=== PATIENT | female | born 1985 | race Caucasian/White ===

== ENCOUNTER 2018-09-04 15:51 | Emergency (ER) | payer MEDICAID ==
[2018-09-04 15:51] VITALS: BMI 32.7
[2018-09-04] MEDS ORDERED: Lactated Ringer's 1,000 ML IV STA (17:05)
[2018-09-04 17:38] LABS: BASO # 0.1 K/uL (0.0-0.2); BASO % 0.7 % (0.0-2.0); EOS # 0.1 K/uL (0.0-0.7); EOS % 1.6 % (0.0-4.0); HEMOGLOBIN 11.1 g/dL (12.0-16.0); LYMPH # 2.4 K/uL (1.0-4.3); LYMPH % 29.1 % (20.0-40.0); MEAN CELL VOLUME 81.7 fl (81.0-99.0); MEAN CORPUSCULAR HEMOGLOBIN 26.4 pg (27.0-31.0); MEAN CORPUSCULAR HGB CONC 32.3 g/dL (33.0-37.0); MONO # 0.7 K/uL (0.0-0.8); MONO % 8.3 % (0.0-10.0); NEUT # 5.1 K/uL (1.8-7.0); NEUT % 60.3 % (50.0-75.0); RBC 4.21 Mil/uL (3.80-5.20); RED CELL DISTRIBUTION WIDTH 15.6 % (11.5-14.5); WHITE BLOOD COUNT 8.4 K/uL (4.8-10.8)
[2018-09-04 17:49] LABS: PROTHROMBIN TIME 11.2 Seconds (9.8-13.1)
--- NOTE | 2018-09-04 18:52 | US ---
Date of service: 09/04/2018 PROCEDURE: OB Pelvic Ultrasound HISTORY: vag bleed early poreg LMP: 06/04/2018 COMPARISON: None available. FINDINGS: UTERUS: Single irregular intrauterine gestational sac. No evidence of pole or yolk sac. Gestational sac diameter measures 3.19 cm corresponding to 8 weeks and 1 day of gestational age. Samina-gestational hemorrhage: None. Uterus measures 9.4 x 5.3 x 6.2 cm. Normal in size and appearance. CERVIX: Long and closed. No cervical abnormality seen. RIGHT OVARY: Measures 4.9 x 2.4 x 4.6 cm. No mass lesion. Normal flow. LEFT OVARY: Measures 2.9 x 2.2 x 2.1 cm. No solid mass. Normal flow. FREE FLUID: None. OTHER FINDINGS: None. IMPRESSION: Findings are most compatible with anembryonic /blighted ovum.
--- NOTE | 2018-09-04 18:55 | ED PDOC ---
HPI: Female Pain Time Seen by Provider: 09/04/18 17:03 Chief Complaint (Nursing): Female Genitourinary Chief Complaint (Provider): Female Genitourinary History Per: Patient History/Exam Limitations: no limitations Onset/Duration Of Symptoms: Days (x 7 ) Current Symptoms Are (Timing): Still Present Additional Complaint(s): 33 year old female with no significant medical history presents to the ED for evaluation of brown vaginal spotting during for the last week. Patient reports that she only has to use pantiliner. Patient is 13 weeks and has not yet begun care. She has an appointment with women's health clinic next week. Denies abdominal cramping, bright red blood, clots, dysuria, urinary frequency and vomiting. PMD: none Abnormal Vaginal Bleeding: Yes : 2 Para: 1 Past Medical History Reviewed: Historical Data, Nursing Documentation, Vital Signs Vital Signs: Last Vital Signs Temp 98.4 F 09/04/18 16:33 Pulse 72 09/04/18 16:33 Resp 16 09/04/18 16:33 BP 140/86 09/04/18 16:33 Pulse Ox 100 09/04/18 16:33 - Medical History PMH: No Chronic Diseases - Surgical History Other surgeries: gastric bypass and abdominoplasty - Family History Family History: States: Diabetes - Social History Current smoker - smoking cessation education provided: No Alcohol: None - Home Medications Home Medications: Ambulatory Orders Medication Instructions Recorded Vits96/Iron Fum/Folic 1 tab PO DAILY 12/29/14 [] Ibuprofen [Motrin Tab] 600 mg PO Q8 PRN #60 tab 09/04/18 - Allergies Allergies/Adverse Reactions: Allergies Allergy/AdvReac Type Severity Reaction Status Date / Time No Known Allergies Allergy Verified 09/04/18 16:33 Review of Systems ROS Statement: Except As Marked, All Systems Reviewed And Found Negative Gastrointestinal: Negative for: Abdominal Pain Genitourinary Female: Positive for: Vaginal Bleeding (brown spotting). Negative for: Dysuria, Frequency, Incontinence, Other (bright red blood or clots) Physical Exam - Reviewed Nursing Documentation Reviewed: Yes Vital Signs Reviewed: Yes - Physical Exam Appears: Positive for: No Acute Distress Head Exam: Positive for: ATRAUMATIC, NORMAL INSPECTION, NORMOCEPHALIC Skin: Positive for: Normal Color, Warm, Dry. Negative for: Rash Eye Exam: Positive for: EOMI, Normal appearance, PERRL Cardiovascular/Chest: Positive for: Regular Rate, Rhythm. Negative for: Murmur Respiratory: Positive for: Normal Breath Sounds. Negative for: Wheezing, Respiratory Distress Gastrointestinal/Abdominal: Positive for: Normal Exam, Soft. Negative for: Tenderness, Mass, Guarding, Rebound Neurological/Psych: Positive for: Awake, Alert, Normal Tone. Negative for: Motor/Sensory Deficits - Laboratory Results Result Diagrams: 09/04/18 17:31 Lab Results: PT 11.2 Seconds (9.8-13.1) 09/04/18 17: INR 1.0 09/04/18 17: APTT 37.0 Seconds (25.6-37.1) 09/04/18 17: Beta HCG, Quant 01101.00 mIU/mL 09/04/18 17:31 - ECG O2 Sat by Pulse Oximetry: 100 (RA) Pulse Ox Interpretation: Normal Medical Decision Making Medical Decision Makin:04 Impression: vaginal bleeding in Differential diagnoses include but are not limited to: UTI, vaginitis, threatened miscarriage, demise Initial Plan: --Blood type and screen --CBC --CMP --Beta-HCG --Chlamydia/ GC RNA --Lactated Ringer's IV 1,000 mls --PTT --PT --Urine preg --Urine dip --OB US 18:48 OB US LMP: 06/04/2018 COMPARISON: None available. FINDINGS: UTERUS: Single irregular intrauterine gestational sac. No evidence of pole or yolk sac. Gestational sac diameter measures 3.19 cm corresponding to 8 weeks and 1 day of gestational age. Samina-gestational hemorrhage: None. Uterus measures 9.4 x 5.3 x 6.2 cm. Normal in size and appearance. CERVIX: Long and closed. No cervical abnormality seen. RIGHT OVARY: Measures 4.9 x 2.4 x 4.6 cm. No mass lesion. Normal flow. LEFT OVARY: Measures 2.9 x 2.2 x 2.1 cm. No solid mass. Normal flow. FREE FLUID: None. OTHER FINDINGS: None. IMPRESSION: Findings are most compatible with anembryonic /blighted ovum. DW pt findings. Pt continues to have benign abdominal exam. Reviewed symptoms to anticipate with miscarriage. Advised rest, fluids, and followup with Gynecologis t as scheduled. Reviewed return parameters including severe pain, bleeding more than one pad an hour, fainting or near fainting. Scribe Attestation: Documented by Carolann Hanson, acting as a scribe for Deisy Pizarro MD. Provider Scribe Attestation: All medical record entries made by the Scribe were at my direction and personally dictated by me. I have reviewed the chart and agree that the record accurately reflects my personal performance of the history, physical exam, medical decision making, and the department course for this patient. I have also personally directed, reviewed, and agree with the discharge instructions and disposition. Disposition - Clinical Impression Clinical Impression: Miscarriage - Disposition Referrals: [facility] [Outside] (FOLLOWUP SCHEDULED FOR REEVALUATION) Disposition: Routine/Home Disposition Time: 19:25 Condition: STABLE Prescriptions: Ibuprofen [Motrin Tab] 600 mg PO Q8 PRN #60 tab PRN Reason: Pain, Moderate (4-7) Instructions: Miscarriage (DC) Forms: [facility] ED School/Work Excuse
[2018-09-04 20:12] VITALS: BP 136/74; PULSE 79; RESP 15; TEMP 98.2; O2SAT 99
== END 2018-09-04 20:12 | disposition home or self-care (01) ==
LOC: H.ER 15:51
DX: O03.9 Complete or unspecified spontaneous abortion without complication (principal); Z3A.13 13 weeks gestation of pregnancy
CPT/HCPCS: 76815; 81025; 84702; 85025; 85610; 85730; 86850; 86900; 87491; 87591; 99284; J7120